=== PATIENT | female | born 1950 | race Caucasian/White ===

== ENCOUNTER 2022-05-14 00:17 | Observation (INO) | payer MEDICARE, MEDICAID, SELFPAY ==
[2022-05-14] VITALS (15 sets, daily range): BP systolic 120–191; BP diastolic 60–93; PULSE 68–104; RESP 11–20; TEMP 36–36.9; O2SAT 92–99
--- NOTE | 2022-05-14 00:18 | XRR_ITS ---
PROCEDURE INFORMATION: Exam: XR Chest Exam date and time: 05/14/2022 12:53 AM Age: 72 years old Clinical indication: Prior surgery; Surgery type: Pacemkaker. Open heart unspecified. Patient HX: Possible CVA. TECHNIQUE: Imaging protocol: Radiologic exam of the chest. Views: 1 view. COMPARISON: No relevant prior studies available. FINDINGS: Limitations: The study is made with less than full inspiration. Tubes, catheters and devices: A pacemaker device is present, and its leads are in appropriate position. Lungs: There is mild pulmonary venous congestion. No focal infiltrate is identified. Pleural spaces: Unremarkable. No pleural effusion. No pneumothorax. Heart/Mediastinum: Unremarkable. No cardiomegaly. Diaphragm: There is moderate elevation right hemidiaphragm. Bones/joints: Sternotomy wires and mediastinal surgical clips are present, consistent with previous coronary arterial bypass grafting. XR/XR chest 1V portable [id number] IMPRESSION: Mild pulmonary venous congestion.
--- NOTE | 2022-05-14 00:18 | CTR_ITS ---
PROCEDURE INFORMATION: Exam: CTA Head With Contrast, Arteriography Exam date and time: 05/14/2022 1:00 AM Age: 72 years old Clinical indication: Stroke-like symptoms; Angel upper extremity weakness; Additional info: CVA TECHNIQUE: Imaging protocol: Computed tomographic angiography of the head with contrast. Exam focused on the arteries. 3D rendering (Not supervised by radiologist): MIP and/or 3D reconstructed images were created by the technologist. Radiation optimization: All CT scans at this facility use at least one of these dose optimization techniques: automated exposure control; mA and/or kV adjustment per patient size (includes targeted exams where dose is matched to clinical indication); or iterative reconstruction. Contrast material: OMNI 350; Contrast volume: 100 ml; Contrast route: INTRAVENOUS (IV); REPORTING DATA: Count of CT and Cardiac NM exams in prior 12 months: This patient has received [address] and 0 known cardiac nuclear medicine studies in the 12 months prior to the current study. COMPARISON: CT head thrombolytic [id number] 05/14/2022 12:10 AM RADIATION DOSE METRICS: Total DLP (mGy-cm): 486.52 FINDINGS: ANTERIOR CIRCULATION: Right internal carotid artery: Intracranial segment is patent with no significant stenosis. No aneurysm. Right middle cerebral artery: There are multiple areas of severe stenosis involving M2 and M3 branches of the anterior division of the right middle cerebral artery. Right anterior cerebral artery: No occlusion or significant stenosis. No aneurysm. Left internal carotid artery: Intracranial segment is patent with no significant stenosis. No aneurysm. Left middle cerebral artery: No occlusion or significant stenosis. No aneurysm. Left anterior cerebral artery: No occlusion or significant stenosis. No aneurysm. POSTERIOR CIRCULATION: Right vertebral artery: No occlusion or significant stenosis. No aneurysm. Left vertebral artery: No occlusion or significant stenosis. No aneurysm. Basilar artery: No occlusion or significant stenosis. No aneurysm. Right posterior cerebral artery: No occlusion or significant stenosis. No aneurysm. Left posterior cerebral artery: No occlusion or significant stenosis. No aneurysm. Brain: No definite mass, mass effect, or midline shift. Cerebral ventricles: No ventriculomegaly. Bones/joints: Unremarkable. No acute fracture. Soft tissues: Unremarkable. PROCEDURE INFORMATION: Exam: CTA Neck With Contrast Exam date and time: 05/14/2022 1:00 AM Age: 72 years old Clinical indication: Stroke-like symptoms; Angel upper extremity weakness; Additional info: CVA TECHNIQUE: Imaging protocol: Computed tomographic angiography of the neck with contrast. 3D rendering (Not supervised by radiologist): MIP and/or 3D reconstructed images were created by the technologist. Radiation optimization: All CT scans at this facility use at least one of these dose optimization techniques: automated exposure control; mA and/or kV adjustment per patient size (includes targeted exams where dose is matched to clinical indication); or iterative reconstruction. Contrast material: OMNI 350; Contrast volume: 100 ml; Contrast route: INTRAVENOUS (IV); REPORTING DATA: Count of CT and Cardiac NM exams in prior 12 months: This patient has received [address] and 0 known cardiac nuclear medicine studies in the 12 months prior to the current study. COMPARISON: CT head thrombolytic [id number] 05/14/2022 12:10 AM RADIATION DOSE METRICS: Total DLP (mGy-cm): 486.52 FINDINGS: Right common carotid artery: There is some atherosclerotic plaque at the right carotid bifurcation without stenosis as measured according to the NASCET criteria. Right internal carotid artery: No stenosis of the extracranial segment. No dissection or occlusion. Right external carotid artery: No occlusion or stenosis of the origin. Left common carotid artery: There is some atherosclerotic plaque and calcification at the left carotid bifurcation without stenosis as measured according to the NASCET criteria. Left internal carotid artery: No stenosis of the extracranial segment. No dissection or occlusion. Left external carotid artery: No occlusion or stenosis of the origin. Right vertebral artery: No stenosis. No dissection or occlusion. Left vertebral artery: Left vertebral artery is dominant. There is no evidence for stenosis or dissection. Soft tissues: Normal. No significant soft tissue swelling. Bones/joints: No acute fracture. CT/CT angio headne* [id number] IMPRESSION: 1. 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 2. No major vascular occlusion. IMPRESSION: There is no evidence for stenosis or occlusion in the carotid or vertebral arteries on either side of the neck. REFERENCES: NASCET CRITERIA. The degree of stenosis in the cervical segment of the internal carotid artery is based on NASCET criteria. Normal is no stenosis. Mild is less than 50% stenosis. Moderate is 50-69% stenosis. Severe is 70% to 99% stenosis. Total occlusion is no detectable patent lumen.
--- NOTE | 2022-05-14 00:18 | CTR_ITS ---
PROCEDURE INFORMATION: Exam: CT Head Without Contrast Exam date and time: 05/14/2022 12:10 AM Age: 72 years old Clinical indication: Stroke-like symptoms; Angel upper extremity weakness; Additional info: CVA TECHNIQUE: Imaging protocol: Computed tomography of the head without contrast. Radiation optimization: All CT scans at this facility use at least one of these dose optimization techniques: automated exposure control; mA and/or kV adjustment per patient size (includes targeted exams where dose is matched to clinical indication); or iterative reconstruction. Other technique: STROKE PROTOCOL was implemented. REPORTING DATA: Count of CT and Cardiac NM exams in prior 12 months: This patient has received 0 known CTs and 0 known cardiac nuclear medicine studies in the 12 months prior to the current study. COMPARISON: No relevant prior studies available. RADIATION DOSE METRICS: Total DLP (mGy-cm): 1045.68 FINDINGS: Brain: There is encephalomalacia in the left posterior frontal and anterior temporal region in keeping with chronic middle cerebral artery territory infarct. There is no intracranial mass or hemorrhage. Low-density changes in periventricular white matter may represent nonspecific small vessel chronic ischemic change. Cerebral ventricles: There is mild enlargement of the left frontal horn due to the adjacent encephalomalacia. No hydrocephalus is identified. Paranasal sinuses: Visualized sinuses are unremarkable. No fluid levels. Mastoid air cells: Visualized mastoid air cells are well aerated. Bones/joints: Unremarkable. No acute fracture. Soft tissues: Unremarkable. CT/CT head thrombolytic [id number] IMPRESSION: 1. 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 2. No acute intracranial finding. ASSESSMENT: ASPECTS ([place] Stroke Program Early CT Score) is 10.
--- NOTE | 2022-05-14 00:43 | ECG_ITS ---
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 Measurements Intervals [place] Rate: 69 P: 224 PA: 198 QRS: -16 QRSD: 108 T: -2 QT: 439 QTc: 473 Interpretive Statements ELECTRONIC ATRIAL PACEMAKER MODERATE T-WAVE ABNORMALITY, CONSIDER ANTEROLATERAL ISCHEMIA [-0.1+ mV T-WAVE IN V3-V6] No previous ECG available for comparison Electronically Signed On 05-14-2022 0:47:09 CDT by Flower Huynh M.D. [id number]
--- NOTE | 2022-05-14 00:45 | W.ED.NEUROSD ---
HPI - Neuro Symptoms/Deficit General: Chief Complaint: Neuro Symptoms/Deficit Stated Complaint: weakness Time Seen by Provider: 05/14/22 00:18 Source: patient and EMS Mode of arrival: EMS Limitations: no limitations History of Present Illness: 72-year-old female that is here by EMS I did speak to family as well patient's had a history of a stroke in the past he states that she has had some cognitive difficulty since her stroke in 2019 they states that tonight she was last seen normal at 1930. Speaking to daughter they went and checked on her at 2200 and noticed that she was having extreme weakness along with difficulty speaking he states she typically speaks clearly even with her cognitive difficulty and that she has a hard time getting words out they states that she was unable to walk or move either upper or lower extremities. Patient here is answering some questions for me but does seem to have a hard time finding words she has extreme weakness to both legs some weakness of upper extremity her last known normal was 1930. Associated symptoms: Deny chest pain, nausea or vomiting Review of Systems Const: Denies: fever(s), chills, body aches or change in appetite Eyes: Denies: blurry vision or eye discomfort ENMT: Denies: throat pain or dental pain Card: Denies: chest pain Resp: Denies: dyspnea GI: Denies: abdominal pain, nausea, vomiting or diarrhea : Denies: dysuria Musc: Denies: neck pain or back pain Skin/Breast: Denies: rash Neuro: Reports: weakness in extremities, difficulty walking, confusion and Slurred speech present Psych: Denies: depression David/Lymph: Denies: easy bruising All/Imm: Denies: urticaria [facility] ED PFSH: Medical History (Updated 05/14/22 @ 02:02 by Charu Sandoval MD) CVA (cerebral vascular accident) Social History (Updated 05/14/22 @ 00:49 by Charu Sandoval MD) Substance/Drug Use: never NIH stroke score NIHSS: Level Of Consciousness - 1a: 1 Level Of Consciousness Questions - 1b: One Correct Level Of Consciousness Commands - 1c: Both Correct Best Gaze - 2: Normal Visual Irene - 3: No Visual Loss Facial Palsy - 4: Normal Motor Arm Right - 5: Effort Against [place] Motor Arm Left - 5: Effort Against [place] Motor Leg Right - 6: No Effort Against [place] Motor Leg Left - 6: No Effort Against [place] Limb Ataxia - 7: Present In Two Limbs Sensory - 8: Mild To Moderate Loss Best Language - 9: Mild/Moderate Aphasia Dysarthia - 10: Mild/Moderate Dysarthia Extinction And Inattention - 11: 0 Score: Total Score: 17 Physical Exam Const: COMMON NORMALS: alert; negative for patient oriented x3 GENERAL APPEARANCE: ill appearing ORIENTATION/CONSCIOUSNESS: Yes oriented to person HENMT: COMMON NORMALS: normocephalic and atraumatic HEAD & SCALP: normocephalic and atraumatic Eye: COMMON NORMALS: Equal, round and reactive pupils present and EOMs intact bilaterally PUPIL: Yes Equal, round and reactive pupils present Neck/C-Spine: COMMON NORMALS: full ROM and supple Chest: COMMONS NORMALS: normal inspection of the chest and normal palpation of entire chest wall Resp: COMMON NORMALS: normal respiratory effort, No retractions, No use of accessory muscles and clear to auscultation bilaterally AUSCULTATION: clear to auscultation bilaterally Cardio: COMMON NORMALS: regular rate, regular rhythm and No murmurs present (Cardio) RATE: regular rate RHYTHM: regular rhythm GI: COMMON NORMALS: Normal to inspection, nondistended, normoactive bowel sounds present, Soft to palpation, non-tender and no masses PALPATION: Yes Soft to palpation Extremity: COMMON NORMALS: normal to inspection and full ROM Neuro: COMMON NORMALS: negative for patient oriented x3 and negative for moves all extremities SENSORIUM/ORIENTATION: Yes alert and Yes oriented to person CRANIAL NERVES: Yes CN normal except as noted SPEECH: abnormal speech GAIT: No Normal gait present MOTOR EXAM: No 5/5 motor strength present throughout Psych: COMMON NORMALS: mental status grossly normal, Normal thought process present and cooperative THOUGHT PROCESS: Normal thought process present Skin: COMMON NORMALS: no rashes or lesions noted and no wounds GENERAL SKIN EXAM: no rashes or lesions noted Course Vital Signs: Vital signs: Vital Signs Temperature 96.8 F L 05/14/22 00:16 Pulse Rate 70 05/14/22 01:36 Respiratory Rate 11 L 05/14/22 01:36 Blood Pressure 172/92 05/14/22 01:30 Pulse Oximetry 97 05/14/22 01:36 Oxygen Delivery Me thod 05/14/22 01:36 MDM - Neuro Symptoms/Deficit Medical Decision Making Patient presents here with weakness her CT head here is normal she is not a tPA candidate as her last known well was at 1930 CTA shows no signs of acute occlusion spoke to hospitalist and will admit at this time. Her symptoms have been improving here as well she is had more strength in her extremities while being here. Lab Data 05/14/22 00:56 05/14/22 00:56 Radiology Impressions Chest X-Ray 05/14/22 00:18 IMPRESSION: Mild pulmonary venous congestion. Head CT 05/14/22 00:18 IMPRESSION: 1. 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 2. No acute intracranial finding. ASSESSMENT: ASPECTS ([place] Stroke Program Early CT Score) is 10. Head/Neck CTA 05/14/22 00:18 IMPRESSION: 1. 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 2. No major vascular occlusion. IMPRESSION: There is no evidence for stenosis or occlusion in the carotid or vertebral arteries on either side of the neck. REFERENCES: NASCET CRITERIA. The degree of stenosis in the cervical segment of the internal carotid artery is based on NASCET criteria. Normal is no stenosis. Mild is less than 50% stenosis. Moderate is 50-69% stenosis. Severe is 70% to 99% stenosis. Total occlusion is no detectable patent lumen. Laboratory Results WBC 7.3 10^3/uL (4.0-10.0) 05/14/22 00:56 RBC 4.80 10^6/uL (4.1-5.3) 05/14/22 00:56 Hgb 13.8 g/dL (11.5-15.3) 05/14/22 00:56 Hct 44.5 % (37.0-47.0) 05/14/22 00:56 MCV 92.7 fl (81-99) 05/14/22 00:56 MCH 28.8 pg (28.0-34.0) 05/14/22 00:56 MCHC 31.0 g/dL (30.0-36.0) 05/14/22 00:56 RDW 14.8 % (12.1-15.1) 05/14/22 00:56 Plt Count 195 10^3/cmm (130-400) 05/14/22 00:56 MPV 10.1 fL (7.4-10.4) 05/14/22 00:56 Neut % (Auto) 39.1 % 05/14/22 00:56 Lymph % (Auto) 41.1 % 05/14/22 00:56 [place] % (Auto) 14.1 % 05/14/22 00:56 Eos % (Auto) 5.0 % 05/14/22 00:56 Baso % (Auto) 0.4 % 05/14/22 00:56 Neut # (Auto) 2.84 10^3/uL (1.8-7.7) 05/14/22 00:56 Lymph # (Auto) 3.0 10^3/uL (0.8-4.8) 05/14/22 00:56 [place] # (Auto) 1.0 10^3/uL (0.2-0.9) H 05/14/22 00:56 Eos # (Auto) 0.4 10^3/uL (0.0-0.8) 05/14/22 00:56 Baso # (Auto) 0.0 10^3/uL (0.0-0.1) 05/14/22 00:56 Nucleated RBC % (auto) 0 % 05/14/22 00:56 Nucleated RBCs # 0.0 /100WBC 05/14/22 00:56 PT 14.20 SECONDS (12.1-14.9) 05/14/22 00:56 INR 1.07 (0.8-1.2) 05/14/22 00:56 APTT 28.4 SECONDS (23.9-36.7) 05/14/22 00:56 Sodium 141 mmol/L (136-145) 05/14/22 00:56 Potassium 4.1 mmol/L (3.5-5.1) 05/14/22 00:56 Chloride 106 mmol/L (98-107) 05/14/22 00:56 Carbon Dioxide 25 mmol/L (22-29) 05/14/22 00:56 Anion Gap 14.1 (5-19) 05/14/22 00:56 BUN 16 mg/dL (8-23) 05/14/22 00:56 Creatinine 0.9 mg/dL (0.5-0.9) 05/14/22 00:56 GFR Calculation Not Reportable 05/14/22 00:56 Glucose 80 mg/dL (65-115) 05/14/22 00:56 Calculated Osmolality 292 mOsm/kg (285-295) 05/14/22 00:56 Calcium 8.6 mg/dL (8.5-10.5) 05/14/22 00:56 Total Bilirubin 0.3 mg/dL (0.15-1.2) 05/14/22 00:56 AST 33 U/L (0-32) H 05/14/22 00:56 ALT 46 U/L (0-33) H 05/14/22 00:56 Alkaline Phosphatase 102 U/L (35-105) 05/14/22 00:56 Total Protein 6.9 g/dL (6.6-8.7) 05/14/22 00:56 Albumin 3.8 g/dL (3.5-5.2) 05/14/22 00:56 Globulin 3.1 g/dL (1.3-4.6) 05/14/22 00:56 Urine Color Colorless (Yellow) 05/14/22 01:22 Urine Appearance Clear (CLEAR) 05/14/22 01:22 Urine pH 7 (5-7) 05/14/22 01:22 Ur Specific [place] 1.010 (1.005-1.030) 05/14/22 01:22 Urine Protein Neg (Negative) 05/14/22 01:22 Urine Glucose (UA) Norm (Normal) 05/14/22 01:22 Urine Ketones Negative (Negative) 05/14/22 01:22 Urine Blood Neg (Negative) 05/14/22 01:22 Urine Nitrate Negative (Negative) 05/14/22 01:22 Urine Bilirubin Neg (Negative) 05/14/22 01:22 Urine Urobilinogen Norm mg/dL (Negative) 05/14/22 01:22 Ur Leukocyte Esterase Negative (Negative) 05/14/22 01:22 Urine Opiates Screen Negative ng/mL (Negative) 05/14/22 01:22 Ur Barbiturates Screen Positive ng/mL (Negative) H 05/14/22 01:22 Ur Phencyclidine Scrn Negative ng/mL (Negative) 05/14/22 01:22 Ur Amphetamines Screen Negative ng/mL (Negative) 03/29/23 01:22 U Benzodiazepines Scrn Negative ng/mL (Negative) 05/14/22 01:22 Urine Cocaine Screen Negative ng/mL (Negative) 05/14/22 01:22 U Marijuana (THC) Screen Negative ng/mL (Negative) 05/14/22 01:22 EKG Data EKG 1: I personally reviewed and interpreted this EKG as follows: EKG interpretation date: 05/14/22 EKG interpretation time: 00:43 Interpretation: paced hr [address] or t wave abnormalities qrs 108 qtc 459 Discharge Plan Discharge Patient Disposition: Admitted As Inpatient Clinical Impression: Weakness Referrals: [facility] [Other] Coding Level of Care Code ED Liturgical Music Director for Perla Saldivar
[2022-05-14 01:03] LABS: Basophils % 0.4 %; Eosinophils # 0.4 10^3/uL (0.0-0.8); Hematocrit 44.5 % (37.0-47.0); Hemoglobin 13.8 g/dL (11.5-15.3); Lymphocytes % 41.1 %; Mean Corpuscular Hemoglobin 28.8 pg (28.0-34.0); Mean Corpuscular Volume 92.7 fl (81-99); Mean Platelet Volume 10.1 fL (7.4-10.4); Monocytes % 14.1 %; Neutrophils # 2.84 10^3/uL (1.8-7.7); Neutrophils % 39.1 %; Nucleated Red Blood Cells % 0 %; Platelet Count 195 10^3/cmm (130-400); Red Cell Distribution Width 14.8 % (12.1-15.1); White Blood Count 7.3 10^3/uL (4.0-10.0)
[2022-05-14] MEDS: iohexol 350 mg/mL 500 mL Btl (per mL) IV (01:12)
[2022-05-14 01:16] LABS: INR 1.07 (0.8-1.2)
[2022-05-14 01:17] LABS: Partial Thromboplastin Time 28.4 SECONDS (23.9-36.7)
[2022-05-14 01:21] LABS: Alanine Aminotransferase 46 U/L (0-33); Albumin Level 3.8 g/dL (3.5-5.2); Alkaline Phosphatase 102 U/L (35-105); Anion Gap 14.1 (5-19); Aspartate Amino Transferase 33 U/L (0-32); Blood Urea Nitrogen 16 mg/dL (8-23); Calcium 8.6 mg/dL (8.5-10.5); Carbon Dioxide 25 mmol/L (22-29); Chloride 106 mmol/L (98-107); Globulin 3.1 g/dL (1.3-4.6); Glucose 80 mg/dL (65-115); Osmolality Calculated 292 mOsm/kg (285-295); Potassium 4.1 mmol/L (3.5-5.1); Sodium 141 mmol/L (136-145); Total Bilirubin 0.3 mg/dL (0.15-1.2); Total Protein 6.9 g/dL (6.6-8.7)
[2022-05-14 01:28] LABS: Add Urine Microscopic? NO; Charge for UA Resulting for Rev
[2022-05-14 01:29] LABS: Bilirubin Urine Neg (Negative); Blood Urine Neg (Negative); Glucose Urine UA Norm (Normal); Ketones Urine Negative (Negative); Leukocyte Esterase Urine Negative (Negative); Nitrate Urine Negative (Negative); Protein Urine Neg (Negative); Urine Appearance Clear (CLEAR); Urine Color Colorless (Yellow); Urobilinogen Urine Norm (Negative); pH Urine 7 (5-7)
[2022-05-14 01:38] LABS: Amphetamines Screen Urine Negative (Negative); Barbiturates Screen Urine Positive (Negative); Benzodiazepines Screen Urine Negative (Negative); Cocaine Screen Urine Negative (Negative); Opiate Screen Urine Negative (Negative); PCP Screen Urine Negative (Negative); THC Screen Urine Negative (Negative)
--- NOTE | 2022-05-14 02:16 | P.HP_ITS ---
Providers/Chief Complaint Chief Complaint: weakness History of Present Illness Neisha Law is a 72 year old female with past medical history of stroke with no major gross deficits, non-smoker, seizures, congestive heart failure unspecified presented to the hospital today after being brought in via [facility] for stroke alert. Patient's last stroke was in 2019 and patient does not have major deficits except very mild left-sided weakness. She is able to walk around without a walker or wheelchair or cane. Daughter is at bedside who provides the history. She states she was not present at the scene when her symptoms started today. Last known normal was around 7:30 PM. Patient had extreme weakness along with difficulty speaking and was unable to move her left side. EMS was called and patient was unable to answer their questions and patient was brought to the hospital. NIH score 17 on arrival. Patient has difficulty answering questions and appears confused. She does her name and date of however does not know where she is or what is going on. She was able to follow commands when seen. Memory recall at 1 minute is okay. Patient deemed not a tPA candidate as she is out of the window. CTA shows no acute signs of occlusion however does show stenosis of anterior division right middle cerebral artery. Patient's symptoms have been improving since he has been brought to the hospital. Chest x-ray shows mild pulmonary vascular congestion head CT shows old left middle cerebral artery territory infarct. No acute intracranial finding. Patient states she would like to be a DNR however she is confused. Had a discussion with her daughter who states patient may be a full code at this time until mental status improves. She is on Dilantin at home for her seizures. Denies n/v/d,dysuria, urinary complaints, abdominal pain, headache, CP, sob Medications/Allergies Allergies Allergy/AdvReac Type Severity Reaction Status Date / Time Unable to Assess Allergy Unverified 05/14/22 00:20 PFSH Acute PFSH: Medical History (Updated 05/14/22 @ 02:42 by Karyna Lepe MD) CVA (cerebral vascular accident) Social History (Updated 05/14/22 @ 00:49 by Charu Sandoval MD) Substance/Drug Use: never Vitals/I&O/Wt Last Vital Signs Temp 96.8 F L 05/14/22 00:16 Pulse 70 05/14/22 01:36 Resp 11 L 05/14/22 01:36 BP 172/92 05/14/22 01:30 Pulse Ox 97 05/14/22 01:36 O2 Del Method 05/14/22 01:36 Weight last 48 hrs Weight 95.708 kg Physical Exam Narrative: General: Alert oriented to self only, seen laying in bed. Awake, responds very slowly. Appears confused. HEENT: Normocephalic, atraumatic, EOMI, no acute respiratory distress. Cardio: Regular rate rhythm, normal S1-S2, Respiratory: Clear to auscultation bilaterally diminished at bases. GI: Abdomen soft, nontender, bowel sounds + Extremities: No edema noted bilateral lower extremities. Temp 96.8, saturating 97% on room air. Neuro: Cranial nerves II to XII intact except mild facial droop noted on left side, left upper extremity strength 3-5, left lower extremity 3 out of 5, PERRLA, peripheral vision impaired on the left side. Did not test for gait at this time. Memory recall normal at 1 minute. Follows commands and responds however is confused. Data 05/14/22 00:56 05/14/22 00:56 A&P Assessment and plan (1) Weakness: (2) CVA (cerebral vascular accident): (3) Pneumonia: (4) Seizures: (5) CHF (congestive heart failure): Plan #Cerebrovascular accident #History of stroke #Hypertension #History of seizures on Dilantin at home #Chronic congestive heart failure #Recent pneumonia dx 1 week prior ? Home medications will need to be confirmed. ? Start on aspirin, Plavix, atorvastatin 80 ? Check MRI head without contrast ? CTA head and neck reviewed. No acute occlusion noted. ? Check Dilantin level ? Allow for permissive hypertension at this time ? Patient to follow-up with neurology as an outpatient at discharge. ? Request records from [facility]. ? Check lipid profile, hemoglobin A1c, TSH ? Has a history of heart failure unsure systolic versus diastolic.. She is on a diuretic at home however I do not know the name or the dosage at this time. Medications will need to be confirmed. Chest x-ray did show mild pulmonary vascular congestion. I will hold off on giving Lasix at this time. She is saturating 97% on room air and laying flat in bed. Appears quite comfortable. - RN attempted to confirm medications but unsucessfull. I called family but unable to get hold of anyone. - Check echo - Monitor on telemetry to r/o occult arrhythmia - Pt still completing antibiotics from 1 week prior dx of pneumonia. Will continue on cefuroxime azithromycin - Check depakote and dilantin level - start warming patient. temp 96.8 - check TSH, cortisol - Nurse dysphagia screen - PT/OT Full code SCDs Heparin SQ twice daily for DVT prophylaxis I spent 60 minutes on this encounter before, during and after the visit, examining the patient, reviewing labs, writing orders and documenting the note and discussing with nursing staff taking care of the patient. Attestations Medical Necessity Statement*: Observation for stroke workup Other Coding Information Focused coding review requested Diagnoses Weakness R53.1 CVA (cerebral vascular accident) I63.9 Pneumonia J18.9 Seizures R56.9 CHF (congestive heart failure) I50.9
--- NOTE | 2022-05-14 02:27 | USCV_ITS ---
Neisha Law Age: 72 Gender: F : 1950 Exam Date: 05/14/2022 03:03 Ordering Phys: Karyna Lepe MD Technologist: NÉSTOR Exam Location: [facility] – [place] Indication: aphasia, slurred speech, weakness bilateral lower extremities, no longer can walk. Patient had prior CVA 2019 BP: 129 / 85 HR: 69 Rhythm: Sinus Technical Quality: Adequate MEASUREMENTS (Male / Female) Normal Values 2D ECHO LV Diastolic Diameter PLAX 3.7 cm 4.2 - 5.9 / 3.9 - 5.3 cm LV Systolic Diameter PLAX 2.4 cm IVS Diastolic Thickness 1.4 cm 0.6 - 1.0 / 0.6 - 0.9 cm IVS Systolic Thickness 1.7 cm LVPW Diastolic Thickness 1.0 cm 0.6 - 1.0 / 0.6 - 0.9 cm LVPW Systolic Thickness 1.5 cm LVOT Diameter 1.8 cm LV Ejection Fraction 2D Teich 64.2 % LV Ejection Fraction MOD 2C 72.3 % LV Ejection Fraction 2C AL 73.2 % LA Diameter 4.7 cm LA Width 4.4 cm LA Height 5.8 cm RA Width 3.2 cm RA Height 3.9 cm Aorta at Sinotubular Diameter 2.5 cm IVC Diameter 1.0 cm M-MODE Aortic Annulus Diameter 2.6 cm LA Ao Ratio MM 1.9 MV E Point Septal Separation 0.0 cm DOPPLER AV Peak Velocity 111.0 cm/s LVOT Peak Velocity 105.0 cm/s AV Area Cont Eq vti 2.3 cm squared AV Area Cont Eq pk 2.4 cm squared MV Peak Velocity 89.0 cm/s MV Area PHT 2.9 cm squared Mitral E to A Ratio 0.9 MV E' Velocity 45.0 cm/s Mitral E to MV E' Ratio 7.2 Mitral E to LV E' Lateral Ratio 6.4 Mitral E to LV E' Septal Ratio 8.3 TR Peak Velocity 250.7 cm/s TR Peak Gradient 25.1 mmHg TV Peak E Velocity 44.0 cm/s Right Atrial Pressure 10.0 mmHg Pulmonary Artery Systolic Pressu 35.1 mmHg PV Peak Velocity 93.0 cm/s RV Acceleration Time 0.1 s RV Ejection Time 0.4 s RV AcT/ET 0.1 FINDINGS Left Ventricle Normal left ventricular size and systolic function, EF 65 %. No regional wall motion abnormalities. Moderate left ventricular hypertrophy. Right Ventricle Catheter/pacemaker wire in the right ventricular cavity. Right Atrium Catheter/pacemaker wire in the right atrial cavity. Left Atrium Mildly increased left atrial size. Mitral Valve Moderate mitral annular calcification. Thickened mitral valve. Mild mitral valve regurgitation. Aortic Valve No gross abnormalities noted Tricuspid Valve Trace tricuspid valve regurgitation. Estimated pulmonary artery peak systolic pressure 35 mmHg Pulmonic Valve Trace pulmonary valve regurgitation. Pericardium Normal pericardium without effusion. Aorta Normal aortic annulus size. IVC Normal inferior vena cava. CONCLUSIONS Normal left ventricular size and systolic function, EF 65 %. No regional wall motion abnormalities. Moderate left ventricular hypertrophy. Mildly increased left atrial size. Moderate mitral annular calcification. Thickened mitral valve. Mild mitral valve regurgitation. Trace pulmonary valve regurgitation. Trace tricuspid valve regurgitation. Estimated pulmonary artery peak systolic pressure 35 mmHg There is no pericardial effusion. There are no intracardiac masses. No similar previous studies are available for comparison Dr Flower Huynh MD FACC (Electronically Signed) Final Date: 14 May 2022 08:46 S
[2022-05-14 02:57] LABS: Estmated Average Glucose 105; Hemoglobin A1C 5.3 % (4.0-6.0)
[2022-05-14 03:01] LABS: Procalcitonin 0.06 ng/mL (0-0.5)
[2022-05-14 03:05] LABS: Cholesterol 147 mg/dL (0-200); HDL Cholesterol 64 mg/dL (60-100); LDL Cholesterol Calculated 71 mg/dL (50-129); LDL HDL Ratio 1.11 RATIO (0.00-3.22); Thyroid Stimulating Hormone 4.96 uIU/mL (0.27-4.20); Triglycerides 62 mg/dL (0-150)
[2022-05-14 03:32] LABS: Phenytoin Dilantin 11.4 ug/mL (10-20); Valproic Acid Level 33.3 ug/mL (50-100)
[2022-05-14] MEDS: heparin 5,000 unit/mL INJ 1 mL 5000 UNIT SUBCUT ×2 (04:00→15:06)
[2022-05-14] MEDS: pantoprazole DR 40 mg Tablet PO (09:36)
[2022-05-14] MEDS: aspirin 325 mg EC Tablet PO (09:36)
[2022-05-14] MEDS: famotidine 20 mg Tablet 40 MG PO (09:36)
[2022-05-14] MEDS: venlafaxine ER (24HR) 150 mg Capsule PO (09:36)
[2022-05-14] MEDS: atorvastatin 40 mg Tablet 80 MG PO (09:36)
[2022-05-14] MEDS: clopidogrel 75 mg Tablet PO (09:37)
[2022-05-14] MEDS: cefUROXime 250 mg Tablet 500 MG PO ×2 (09:54→17:58)
--- NOTE | 2022-05-14 10:11 | P.MISC_ITS ---
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
[2022-05-14 12:54] LABS: Glucose Point of Care 80 mg/dL (70-110)
--- NOTE | 2022-05-14 22:32 | PC.NURSE ---
Pt is requesting pain medication for CORRIGAN at this time. Pt referred to physician Dr. Lepe for review of pain treatment d/t no pain medications ordered at this time.
[2022-05-14] MEDS: acetaminophen 325 mg Tablet 650 MG PO (22:39)
[2022-05-15] MEDS: heparin 5,000 unit/mL INJ 1 mL 5000 UNIT SUBCUT ×2 (02:10→15:39)
[2022-05-15 03:16] VITALS: BP 108/62; PULSE 58; RESP 16; TEMP 36.9; O2SAT 95
[2022-05-15 06:07] VITALS: PULSE 75
[2022-05-15 08:00] VITALS: BP 133/75; PULSE 77; TEMP 37.1; O2SAT 94
--- NOTE | 2022-05-15 08:59 | P.DS_ITS ---
Discharge Providers Date of Admission: 05/14/22 02:00 Date of Discharge: May 15, 2022 Attending Provider at Admission: Karyna Lepe MD Attending Provider at Discharge: Olegario Charles MD Diagnoses at Discharge Discharge Diagnosis (1) Weakness: Status: Acute (2) CVA (cerebral vascular accident): Status: Acute (3) Pneumonia: Status: Acute (4) Seizures: Status: Acute (5) CHF (congestive heart failure): Status: Acute Reason for Visit Reason for Visit: weakness Hospital Course Hospital Course 72-year-old female with history of left-sided weakness from previous CVA was flown in from [facility] for management evaluation of worsening for stroke related symptoms. She was suffering from word finding difficulty and left-sided weakness was getting worse. CT head, head and neck CTA did not show any active clot or signs of stroke, she is not a candidate of MRI because of pacemaker, echo was unremarkable, she remained hemodynamically stable She did excellent with physical therapy, she would only need home exercise program, her son-in-law will pick her up today Patient has remained in good spirits Preserved ejection fraction heart failure mild exacerbation for which she will get Lasix with potassium supplement at home she can take Lasix on as-needed basis, EF is 65% Physical Exam Narrative: Awake and alert Lives in good spirits S1, S2 Hemodynamically stable Afebrile Awake and alert Left-sided weakness is chronic no significant weakness Able to move independently Discharge Data Studies Completed and Pending Completed Studies During Hospitalization Category Date Time Status CT angio headneck* [id number] Stat Cat Scan 05/14/22 00:[address] head thrombolytic [id number] Stat Cat Scan 05/14/22 00:18 Completed XR chest 1V portable [id number] Stat Exams 05/14/22 00:18 Completed CV. echo complete* [id number] Stat Ultrasound 05/14/22 02:27 Completed Radiology Impressions Chest X-Ray 05/14/22 00:18 IMPRESSION: Mild pulmonary venous congestion. Head CT 05/14/22 00:18 IMPRESSION: 1. 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 2. No acute intracranial finding. ASSESSMENT: ASPECTS ([place] Stroke Program Early CT Score) is 10. Head/Neck CTA 05/14/22 00:18 IMPRESSION: 1. 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 2. No major vascular occlusion. IMPRESSION: There is no evidence for stenosis or occlusion in the carotid or vertebral arteries on either side of the neck. REFERENCES: NASCET CRITERIA. The degree of stenosis in the cervical segment of the internal carotid artery is based on NASCET criteria. Normal is no stenosis. Mild is less than 50% stenosis. Moderate is 50-69% stenosis. Severe is 70% to 99% stenosis. Total occlusion is no detectable patent lumen. Laboratory Results WBC 7.3 10^3/uL (4.0-10.0) 05/14/22 00:56 RBC 4.80 10^6/uL (4.1-5.3) 05/14/22 00:56 Hgb 13.8 g/dL (11.5-15.3) 05/14/22 00:56 Hct 44.5 % (37.0-47.0) 05/14/22 00:56 MCV 92.7 fl (81-99) 05/14/22 00:56 MCH 28.8 pg (28.0-34.0) 05/14/22 00:56 MCHC 31.0 g/dL (30.0-36.0) 05/14/22 00:56 RDW 14.8 % (12.1-15.1) 05/14/22 00:56 Plt Count 195 10^3/cmm (130-400) 05/14/22 00:56 MPV 10.1 fL (7.4-10.4) 05/14/22 00:56 Neut % (Auto) 39.1 % 05/14/22 00:56 Lymph % (Auto) 41.1 % 05/14/22 00:56 [place] % (Auto) 14.1 % 05/14/22 00:56 Eos % (Auto) 5.0 % 05/14/22 00:56 Baso % (Auto) 0.4 % 05/14/22 00:56 Neut # (Auto) 2.84 10^3/uL (1.8-7.7) 05/14/22 00:56 Lymph # (Auto) 3.0 10^3/uL (0.8-4.8) 05/14/22 00:56 [place] # (Auto) 1.0 10^3/uL (0.2-0.9) H 05/14/22 00:56 Eos # (Auto) 0.4 10^3/uL (0.0-0.8) 05/14/22 00:56 Baso # (Auto) 0.0 10^3/uL (0.0-0.1) 05/14/22 00:56 Nucleated RBC % (auto) 0 % 05/14/22 00:56 Nucleated RBCs # 0.0 /100WBC 05/14/22 00:56 PT 14.20 SECONDS (12.1-14.9) 05/14/22 00:56 INR 1.07 (0.8-1.2) 05/14/22 00:56 APTT 28.4 SECONDS (23.9-36.7) 05/14/22 00:56 Sodium 141 mmol/L (136-145) 05/14/22 00:56 Potassium 4.1 mmol/L (3.5-5.1) 05/14/22 00:56 Chloride 106 mmol/L (98-107) 05/14/22 00:56 Carbon Dioxide 25 mmol/L (22-29) 05/14/22 00:56 Anion Gap 14.1 (5-19) 05/14/22 00:56 BUN 16 mg/dL (8-23) 05/14/22 00:56 Creatinine 0.9 mg/dL (0.5-0.9) 05/14/22 00:56 GFR Calculation Not Reportable 05/14/22 00:56 Glucose 80 mg/dL (65-115) 05/14/22 00:56 POC Glucose 80 mg/dL (70-110) 05/14/22 12:24 Estimat Average Glucose 105 05/14/22 00:56 Hemoglobin A1c 5.3 % (4.0-6.0) 05/14/22 00:56 Calculated Osmolality 292 mOsm/kg (285-295) 05/14/22 00:56 Calcium 8.6 mg/dL (8.5-10.5) 05/14/22 00:56 Total Bilirubin 0.3 mg/dL (0.15-1.2) 05/14/22 00:56 AST 33 U/L (0-32) H 05/14/22 00:56 ALT 46 U/L (0-33) H 05/14/22 00:56 Alkaline Phosphatase 102 U/L (35-105) 05/14/22 00:56 Total Protein 6.9 g/dL (6.6-8.7) 05/14/22 00:56 Albumin 3.8 g/dL (3.5-5.2) 05/14/22 00:56 Globulin 3.1 g/dL (1.3-4.6) 05/14/22 00:56 Triglycerides 62 mg/dL (0-150) 05/14/22 00:56 Cholesterol 147 mg/dL (0-200) 05/14/22 00:56 LDL Cholesterol, Calc 71 mg/dL (50-129) 05/14/22 00:56 HDL Cholesterol 64 mg/dL (60-100) 05/14/22 00:56 LDL/HDL Ratio 1.11 RATIO (0.00-3.22) 05/14/22 00:56 Cholesterol/HDL Ratio 2.30 mg/dL (0.0-4.40) 05/14/22 00:56 Procalcitonin 0.06 ng/mL (0-0.5) 05/14/22 00:56 TSH 4.96 uIU/mL (0.27-4.20) H 05/14/22 00:56 Urine Color Colorless (Yellow) 05/14/22 01:22 Urine Appearance Clear (CLEAR) 05/14/22 01:22 Urine pH 7 (5-7) 05/14/22 01:22 Ur Specific [place] 1.010 (1.005-1.030) 05/14/22 01:22 Urine Protein Neg (Negative) 05/14/22 01:22 Urine Glucose (UA) Norm (Normal) 05/14/22 01:22 Urine Ketones Negative (Negative) 05/14/22 01:22 Urine Blood Neg (Negative) 05/14/22 01:22 Urine Nitrate Negative (Negative) 05/14/22 01:22 Urine Bilirubin Neg (Negative) 05/14/22 01:22 Urine Urobilinogen Norm mg/dL (Negative) 05/14/22 01:22 Ur Leukocyte Esterase Negative (Negative) 05/14/22 01:22 Urine Opiates Screen Negative ng/mL (Negative) 05/14/22 01:22 Ur Barbiturates Screen Positive ng/mL (Negative) H 05/14/22 01:22 Phenytoin 11.4 ug/mL (10-20) 05/14/22 00:56 Valproic Acid 33.3 ug/mL (50-100) L 05/14/22 00:56 Ur Phencyclidine Scrn Negative ng/mL (Negative) 05/14/22 01:22 Ur Amphetamines Screen Negative ng/mL (Negative) 05/14/22 01:22 U Benzodiazepines Scrn Negative ng/mL (Negative) 05/14/22 01:22 Urine Cocaine Screen Negative ng/mL (Negative) 05/14/22 01:22 U Marijuana (THC) Screen Negative ng/mL (Negative) 05/14/22 01:22 Vitals Last Vital Signs Temp 98.8 F 05/15/22 08:00 Pulse 77 05/15/22 08:00 Resp 16 05/15/22 03:16 BP 133/75 05/15/22 08:00 Pulse Ox 94 05/15/22 08:00 O2 Del Method 05/15/22 08:00 Discharge Plan Discharge Patient Disposition: Home Condition: Stable Prescriptions: New clopidogrel 75 mg Tablet 75 mg PO DAILY Qty: 20 0RF aspirin 81 mg tablet,delayed release (DR/EC) 81 mg PO DAILY Qty: 60 2RF furosemide [Lasix] 20 mg tablet 20 mg PO DAILY PRN (Reason: weight gain >3lbs in a day) Qty: 30 0RF Continued divalproex 250 mg tablet,delayed release (DR/EC) 250 mg PO BID tizanidine 4 mg tablet 4 mg PO BID lisinopril 20 mg tablet 20 mg PO DAILY famotidine 40 mg tablet 40 mg PO DAILY venlafaxine 150 mg capsule,extended release 24hr 150 mg PO DAILY phenytoin sodium extended 100 mg capsule 200 mg PO BID hydrocodone-acetaminophen 10-325 mg tablet 10 - 325 tab PO BID PRN (Reason: Pain) pantoprazole 40 mg tablet,delayed release (DR/EC) 40 mg PO DAILY metoclopramide HCl 10 mg tablet 10 mg PO BID metoprolol tartrate 25 mg tablet 12.5 mg PO BID atorvastatin 80 mg tablet 80 mg PO DAILY Qty: 60 0RF Changed potassium chloride 20 mEq tablet,ER particles/crystals 20 meq PO DAILY PRN (Reason: only with lasix) Qty: 30 0RF Rx Instructions: only take with lasix Discharge Orders: Discharge Order (Routine); Ordered 05/15/22 Ordered By: Olegario Charles Referrals: [facility] [Other] Patient Instructions: Opioid Safety Discharge Attestations Time Spent in Discharge Care*: greater than 30 min Quality Metrics Clinical Quality Measures [ Cerebrovascular Accident { Contraindication to Antithrombotic: None; an tithrombotic prescribed; Contraindication to Anticoagulation: Medical contraindication; Contraindication to Statin: None; Statin prescribed; Contraindication to antithrombotic day 2: None; Antithrombotic given day 2; Contraindication to tPA: Treatment not indicated;}] Coding Level of Care Code Acute Code for Chg Fwd Diagnoses Weakness R53.1 CVA (cerebral vascular accident) I63.9 Pneumonia J18.9 Seizures R56.9 CHF (congestive heart failure) I50.9
[2022-05-15] MEDS: venlafaxine ER (24HR) 150 mg Capsule PO (09:53)
[2022-05-15] MEDS: clopidogrel 75 mg Tablet PO (09:53)
[2022-05-15] MEDS: famotidine 20 mg Tablet 40 MG PO (09:53)
[2022-05-15] MEDS: pantoprazole DR 40 mg Tablet PO (09:53)
[2022-05-15] MEDS: atorvastatin 40 mg Tablet 80 MG PO (09:53)
[2022-05-15] MEDS: aspirin 325 mg EC Tablet PO (09:53)
--- NOTE | 2022-05-15 10:16 | PC.CHAP ---
Pastoral Care Encounter/Spiritual Assessment Type of Contact [] Declined director sports visit [] Patient/Family/Request visit [] Outpatient visit [] Follow-up visit [] Physician referral [] Code/Alert [x] Routine visit [] Staff referral [] Actively dying [] Patient sleeping [] Family support [] [] Out of room [] Palliative care [] [x] Receiving care in room [] Pre-surgical visit [] Trauma [] Long length of stay [] ICU visit [] Other: Relational/Emotional Strength [x] Patient feels connected with others/family/visitors/staff [] Distress [] Loneliness/isolation [] Abandonment Spirituality of Patient [x] Person of Terri [] Attends Synagogue of their Terri [x] Believes in Prayer [] Reads Bible or Zoroastrianism materials [] There are Spiritual issues to be addressed 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 Interventions [x] Prayer [x] Active listening [x] Non-anxious presence [x] Spiritual/emotional support [] Crisis/trauma care [x] Spiritual counseling [] Bereavement support [] Provided bereavement packet [] Provided Bible/devotional materials [] Provided toy/stuffed animal, coloring book to patient or family member [] Provided Communion [] Anointing/[place] [] Salvation [x] Completed spiritual assessment [] Other: Impact on Illness or Injury [] Angry [] Fearful [] Anxious [] Often cries [] Exhaustion [] Unable to work [] Unable to attend catholic [] Unable to walk/stand [] Unable to read [] Unable to drive [] Unable to eat/drink [] Unable to sleep [] Unable to be with family [] Patient intubated [] Other: Summary notb suer what happened has a good attitude feeling better well be going home Time spent with patient 10 mins
[2022-05-15] MEDS: cefUROXime 250 mg Tablet 500 MG PO (10:29)
[2022-05-15 11:48] VITALS: BP 132/78; PULSE 80; RESP 16; TEMP 37.1; O2SAT 97
--- NOTE | 2022-05-15 13:42 | PC.NURSE ---
This nurse is aware of discharge orders for this patient. 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 Information passed along to charge nurse.
[2022-05-15 15:54] VITALS: BP 119/74; PULSE 74; RESP 16; TEMP 36.6; O2SAT 96
[2022-05-15 16:53] VITALS: BP 119/74; PULSE 74; RESP 16; TEMP 36.6; O2SAT 96
[2022-05-16 15:16] LABS: Glucose Point of Care 77 mg/dL (70-110)
== END 2022-05-15 16:55 | disposition home or self-care (01) ==
LOC: ER 02:02 → MEDSURG 04:59
PROVIDERS: Admitting Provider Internal Medicine; Emergency Provider Emergency Medicine; Visit Provider Internal Medicine
DX: I63.9 Cerebral infarction, unspecified (principal); R29.717 NIHSS score 17; I69.354 Hemiplegia and hemiparesis following cerebral infarction affecting left non-dominant side; J18.9 Pneumonia, unspecified organism; R56.9 Unspecified convulsions; I11.0 Hypertensive heart disease with heart failure; I50.9 Heart failure, unspecified
CPT/HCPCS: 36416; 70450; 70496; 70498; 71045; 80053; 80061; 80164; 80185; 80306; 81003; 82962; 83036; 84145; 84443; 85025; 85610; 85730; 92523; 92610; 93005; 93306; 96365; 96366; 96372; 97110; 97116; 97161; 97165; 97535; 99285; G0378; J1644; Q9967